=== PATIENT | female | born 1955 | race African-American/Black ===

== ENCOUNTER 2016-06-27 11:38 | Emergency (ER) | payer OTHER ==
--- NOTE | 2016-06-27 12:08 | ER Document Report ---
ED Medical Screen (RME) - General Stated Complaint: ABNORMAL LABS Notes: Patient states sudden onset of vomiting this morning, no diarrhea, no fever. Feels weak, states she has had a problem with her potassium in the past and thinks it is abnormal. Denies chest pain or shortness of breath. I have greeted and performed a rapid initial assessment of this patient. A comprehensive ED assessment and evaluation of the patient, analysis of test results and completion of the medical decision making process will be conducted by additional ED providers. TRAVEL OUTSIDE OF THE [place] IN LAST 30 DAYS: No - Related Data Allergies/Adverse Reactions: codeine [Codeine] Allergy (Verified 06/27/16 12:05) Past Medical History - Past Medical History Cardiac Medical History: Reports: Hx Hypertension Endocrine Medical History: Reports: Hx Diabetes Mellitus Type 2 Past Surgical History: Reports: Hx Hysterectomy - Immunizations Immunizations up to date: Yes Physical Exam - Vital signs Vitals: Temp Pulse Resp BP Pulse Ox 97.8 F 98 20 143/83 H 98 06/27/16 11:58 06/27/16 11:58 06/27/16 11:58 06/27/16 11:58 06/27/16 11:58 - Cardiovascular Rhythm: Regular Heart sounds: Normal auscultation Course - Vital Signs Vital signs: Temp Pulse Resp BP Pulse Ox 97.8 F 98 20 143/83 H 98 06/27/16 11:58 06/27/16 11:58 06/27/16 11:58 06/27/16 11:58 06/27/16 11:58
[2016-06-27 12:35] LABS: ABSOLUTE BASOPHILS # (AUTO) 0.1 10^3/uL (0.0-0.2); ABSOLUTE EOSINOPHILS # (AUTO) 0.1 10^3/uL (0.0-0.6); ABSOLUTE LYMPHOCYTES (AUTO) 2.8 10^3/uL (0.5-4.7); ABSOLUTE MONOCYTES (AUTO) 1.1 10^3/uL (0.1-1.4); ABSOLUTE NEUT (AUTO) 6.1 10^3/uL (1.7-8.2); BASOPHILS % (AUTO) 0.7 % (0-2); EOSINOPHILS % (AUTO) 0.7 % (0-6); HEMATOCRIT 44.1 % (36.0-47.0); HEMOGLOBIN 14.7 g/dL (12.0-15.5); LYMPHOCYTES % (AUTO) 27.6 % (13-45); MEAN CORPUSCULAR HEMOGLOBIN 28.5 pg (27.0-33.4); MEAN CORPUSCULAR HGB CONC 33.3 g/dL (32.0-36.0); MEAN CORPUSCULAR VOLUME 86 fl (80-97); MONOCYTES % (AUTO) 10.9 % (3-13); RED BLOOD COUNT 5.16 10^6/uL (3.72-5.28); RED CELL DISTRIBUTION WIDTH 15.1 % (11.5-14.0); SEGMENTED NEUTROPHILS % (AUTO) 60.1 % (42-78); WHITE BLOOD COUNT 10.1 10^3/uL (4.0-10.5)
[2016-06-27 12:58] LABS: ALANINE AMINOTRANSFERASE 19 U/L (9-52); ALBUMIN 4.2 g/dL (3.5-5.0); ALKALINE PHOSPHATASE 125 U/L (38-126); ANION GAP 17 (5-19); ASPARTATE AMINO TRANSFERASE 16 U/L (14-36); BILIRUBIN,TOTAL 0.6 mg/dL (0.2-1.3); BLOOD UREA NITROGEN 11 mg/dL (7-20); CALCIUM 10.8 mg/dL (8.4-10.2); CARBON DIOXIDE 28 mmol/L (22-30); CREATINE KINASE 68 U/L (30-135); CREATININE RESULT 0.67 mg/dL (0.52-1.25); GLUCOSE 117 mg/dL (75-110); SODIUM 142.2 mmol/L (137-145); TOTAL PROTEIN 7.4 g/dL (6.3-8.2)
[2016-06-27 13:10] LABS: CREATINE KINASE MB 0.71 ng/mL (<4.55)
[2016-06-27 13:16] LABS: TROPONIN I < 0.012 ng/mL
[2016-06-27 13:21] LABS: CHLORIDE 97 mmol/L (98-107)
[2016-06-27 13:22] LABS: POTASSIUM 2.7 mmol/L (3.6-5.0)
--- NOTE | 2016-06-27 13:30 | ER Document Report ---
ED General - General Chief Complaint: Abnormal Lab Results Stated Complaint: ABNORMAL LABS Mode of Arrival: Ambulatory Information source: Patient TRAVEL OUTSIDE OF THE [place] IN LAST 30 DAYS: No - HPI Onset: This afternoon Onset/Duration: Sudden Quality of pain: No pain Severity: Moderate Associated symptoms: Nausea, Vomiting, Sweating, Weakness Exacerbated by: Denies Relieved by: Denies Similar symptoms previously: Yes Recently seen / treated by doctor: No Notes: Sudden onset during physical therapy for rehabilitation of left knee which was replaced 3 months ago. - Related Data Allergies/Adverse Reactions: codeine [Codeine] Allergy (Verified 06/27/16 12:05) Past Medical History - General Information source: Patient - Social History Smoking Status: Current Every Day Smoker Cigarette use (# per day): Yes Chew tobacco use (# tins/day): No Frequency of alcohol use: Occasional Drug Abuse: None Lives with: Family Family History: Reviewed & Not Pertinent Patient has suicidal ideation: No Patient has homicidal ideation: No - Past Medical History Cardiac Medical History: Reports: Hx Hypertension Pulmonary Medical History: Reports: None EENT Medical History: Reports: None Neurological Medical History: Reports: None Endocrine Medical History: Reports: Hx Diabetes Mellitus Type 2 Renal/ Medical History: Reports: None. Denies: Hx Peritoneal Dialysis Malignancy Medical History: Reports: None GI Medical History: Reports: None Musculoskeltal Medical History: Reports Hx Arthritis Psychiatric Medical History: Reports: None Past Surgical History: Reports: Hx Hysterectomy. Denies: Hx Appendectomy, Hx Bowel Surgery, Hx Cholecystectomy - Immunizations Immunizations up to date: Yes Review of Systems - Review of Systems Constitutional: Weakness EENT: No symptoms reported Cardiovascular: Lightheaded. denies: Chest pain, Syncope Respiratory: No symptoms reported Gastrointestinal: See HPI Genitourinary: No symptoms reported Female Genitourinary: No symptoms reported Musculoskeletal: No symptoms reported Skin: No symptoms reported Neurological/Psychological: No symptoms reported. denies: Headaches Physical Exam - Vital signs Vitals: Temp Pulse Resp BP Pulse Ox 97.8 F 98 20 143/83 H 98 06/27/16 11:58 06/27/16 11:58 06/27/16 11:58 06/27/16 11:58 06/27/16 11:58 Interpretation: Hypertensive. No: Tachycardic, Tachypneic, Febrile - General General appearance: Appears well, Alert In distress: None - HEENT Head: Normocephalic Eyes: Normal Conjunctiva: Normal Ears: Normal Nasal: Normal Mouth/Lips: Normal Mucous membranes: Dry Pharynx: Normal Neck: Normal - Respiratory Respiratory status: No respiratory distress Breath sounds: Normal - Cardiovascular Rhythm: Regular, Tachycardia Heart sounds: Normal auscultation Murmur: No - Abdominal Inspection: Normal Distension: No distension Bowel sounds: Hyperactive Tenderness: Tender - MILD, EPIGASTRIC - Back Back: Normal - Extremities General upper extremity: Normal inspection General lower extremity: Normal inspection - Neurological Neuro grossly intact: Yes Cognition: Normal Orientation: AAOx4 - Psychological Associated symptoms: Normal affect, Normal mood - Skin Skin Temperature: Warm Skin Moisture: Dry Skin Color: Normal Skin Turgor: Elastic Course - Re-evaluation Re-evalutation: 06/27/16 18:14 Patient states she is feeling better, stronger. No more nausea. Intravenous potassium infusion nearly complete. Replete potassium measurement pending. Will discharge home with supplemental by mouth potassium for next 4 days. - Vital Signs Vital signs: Temp Pulse Resp BP Pulse Ox 97.7 F 95 20 133/98 H 100 06/27/16 17:33 06/27/16 17:33 06/27/16 17:33 06/27/16 17:33 06/27/16 17:33 - Laboratory Result Diagrams: 06/27/16 12:20 06/27/16 12:20 Laboratory results interpreted by me: 06/27/16 06/27/16 12:20 12:20 RDW 15.1 H Potassium 2.7 L* Chloride 97 L Glucose 117 H Calcium 10.8 H - EKG Interpretation by Ri EKG shows normal: Sinus rhythm Rate: Tachycardia Rhythm: PVC's, APC's P Waves: LAE Discharge - Discharge Clinical Impression: Hypokalemia Vomiting Qualifiers: Vomiting type: unspecified Vomiting Intractability: non-intractable Nausea presence: with nausea Qualified Code(s): R11.2 - Nausea with vomiting, unspecified Disposition: HOME, SELF-CARE Instructions: Hypokalemia ([facility]), Antinausea Medication ([facility]), Intravenous (IV) Fluids ([facility]) Additional Instructions: REST, DRINK PLENTY OF FLUIDS. BEGINNING TOMORROW, TAKE POTASSIUM TABLETS TWICE A DAY PRESCRIBED. FOLLOW UP WITH YOUR PRIMARY CARE PROVIDER OR RETURN TO E.R. IF PROBLEMS. Prescriptions: Potassium Chloride [K-Tab ER] 10 meq PO BID #10 tablet.sa Referrals: MARLENA HERNANDES, [facility] [Primary Care Provider] - Follow up as needed
[2016-06-27] MEDS ORDERED: NORMAL SALINE 1000 ML 1,000 ML IV ONE (13:49)
[2016-06-27] MEDS ORDERED: ONDANSETRON HCL INJ/PF 4 MG/2 ML SDV IV ONE (13:50)
[2016-06-27] MEDS: POTASSI CL 20 MEQ/50 ML RIDER 50 ML IV SCH ×2 (14:21→15:47)
[2016-06-27] MEDS ORDERED: POTASSIUM CHLORIDE 10 MEQ TABLET.SA PO ONE (15:35)
[2016-06-27 19:01] LABS: ANION GAP 11 (5-19); BLOOD UREA NITROGEN 12 mg/dL (7-20); CALCIUM 9.6 mg/dL (8.4-10.2); CARBON DIOXIDE 29 mmol/L (22-30); CHLORIDE 102 mmol/L (98-107); GLUCOSE 109 mg/dL (75-110); SODIUM 142.2 mmol/L (137-145)
[2016-06-27 19:10] LABS: POTASSIUM 3.8 mmol/L (3.6-5.0)
[2016-06-27 19:36] VITALS: BP 134/81
--- NOTE | 2016-06-28 16:10 | EKG REPORT ---
SEVERITY:- ABNORMAL ECG - SINUS TACHYCARDIA LEFT ATRIAL ABNORMALITY : Confirmed by: Barbi Beltran MD 28-Jun-2016 16:09:17
== END 2016-06-27 19:36 | disposition home or self-care (01) ==
LOC: ER 11:38
DX: E87.6 Hypokalemia (principal); R11.2 Nausea with vomiting, unspecified; R61 Generalized hyperhidrosis; R53.1 Weakness; R10.816 Epigastric abdominal tenderness; R42 Dizziness and giddiness; I10 Essential (primary) hypertension; E11.9 Type 2 diabetes mellitus without complications; F17.210 Nicotine dependence, cigarettes, uncomplicated; Z96.652 Presence of left artificial knee joint; Z88.5 Allergy status to narcotic agent
CPT/HCPCS: 93005; 99284; 96361; 96375; 96365; 96366; 36415; 82553; 82550; 83690; 85025; 80048; 80053; 84484; 71020; 93010; J2405; J3480; J7030